=== PATIENT | male | born 1960 | race Caucasian/White ===

== ENCOUNTER → 2021-06-07 | Day surgery (SDC) | payer BC ==
[~2021-06-07] MED LIST: AMLODIPINE BESY10 MG PO; BUPROPION XL300 MG PO; EFFEXOR XR150 MG PO; LOSARTAN-HCTZ1 EACH PO; NORCO5 PO; PRILOSEC OTC20 MG PO
--- NOTE | ~2021-06-07 | OP ---
[facility] [address] [place] [address] OPERATIVE REPORT Name: MIGUEL ZIMMERMAN Room: [facility]..#: [id number] Admission: 06/07/21 Attend Phys: Byron Velez Discharge: Date of : 62 Report #: [id number] THIS REPORT FOR: cc: Kamilla Madden MD, Kelly A. MD Patterson,Byron Calvert MD ~ DATE OF SURGERY: 06/07/2021 PREOPERATIVE DIAGNOSIS: Left inguinal hernia. POSTOPERATIVE DIAGNOSIS: Left inguinal hernia. OPERATION: Laparoscopic repair of left inguinal hernia with mesh. SURGEON: Byron Velez MD ANESTHESIA: General. ESTIMATED BLOOD LOSS: Minimal. SPECIMENS: None. DESCRIPTION OF PROCEDURE: After informed consent was obtained, the patient was brought to the operating room and placed supine. SCDs were placed and working, preoperative antibiotics were administered, general anesthesia was induced. The abdomen was prepped and draped in the usual sterile fashion. The patient had voided prior to coming back to the OR. A 10 mm incision was made above the umbilicus. Fascia was incised and a trocar was placed. Pneumoperitoneum was established. Left and right-sided 5 mm trocars were placed. The peritoneum at the left ASIS was scored. The peritoneum was then incised medially and reflected inferiorly. This allowed visualization of the cord structures as well as the epigastric vessels and the iliac vessels. I identified the pubic bone. He had an indirect hernia. This was all carefully reduced. Cord structures were protected at all times. A Bard 3DMax medium left-sided mesh was inserted. It was placed into the preperitoneal pocket that was made. I then reapproximated the peritoneum over the mesh incorporating bites of the mesh into the repair to keep the mesh in place. The mesh was 100% covered. The area was then instilled with 10 mL of 0.5% Marcaine solution. The ports were removed under direct vision. The fascia at the midline was closed with a etsihk-rx-soraj 0 Vicryl. Skin was closed with 4-0 Monocryl. Incisions were [place] [address] OPERATIVE REPORT Name: MIGUEL ZIMMERMAN Room: [facility]#: [id number] Admission: 06/07/21 Attend Phys: Byron Velez Discharge: Date of : 62 Report #: [id number] COMPLICATIONS: None. DISPOSITION: The patient was taken to recovery in satisfactory condition. By: [id number] Velez MD /nt
[2021-06-07 06:35] LABS: HEMATOCRIT 39.7 % (42.0-52.0); HEMOGLOBIN 13.8 gm/dL (14.0-18.0); MCHC 34.7 g/dL (28.0-37.0); MCV 86.5 fL (80.0-100.0); MPV 7.6 fl. (7.2-11.1); RBC 4.59 mil/uL (4.50-6.00); RDW-CV 13.4 % (10.5-14.5); WBC 8.3 thou/uL (4.0-11.0)
[2021-06-07 06:40] LABS: CALCIUM 8.7 mg/dL (8.5-10.1); CREATININE 1.2 mg/dL (0.6-1.3); POTASSIUM 3.6 mmol/L (3.5-5.1)
--- NOTE | 2021-06-08 11:13 | EKG ---
[place] [address] ELECTROCARDIOGRAM REPORT Name: MIGUEL ZIMMERMAN Room: [facility]#: [id number] Admission: 06/07/21 Attend Phys: Byron Alvarez Discharge: Date of : 62 Date of Service: 06/07/21718 Report #: [id number] THIS REPORT FOR: //name// [facility] Test Date: 2021-06-07 Test Time: 07:19:15 Pat Name: MIGUEL ZIMMERMAN Department: Room: Gender: [employer] Curator: : 1960 Requested By: Tomasz Pereira Order Number: [id number] Amos MD: Derrek Vora Measurements Intervals [place] Rate: 68 P: 38 IN: 152 QRS: 55 QRSD: 100 T: 40 QT: 401 QTc: 427 Interpretive Statements Sinus rhythm Abnormal R-wave progression, early transition No previous ECG available for comparison Electronically Signed On 06-08-2021 11:13:37 [employer] by Derrek Vora [email or web address] <ELECTRONICALLY SIGNED> By: Derrek Vora MD, [facility] 06/08/21 1113 8 8 Derrek Vora MD, [facility] /EPI
== END | disposition home or self-care (01) ==
LOC: M.SUR 06:00
PROVIDERS: Anesthesiology; ATTEND Surgery
DX: K40.90 Unilateral inguinal hernia, without obstruction or gangrene, not specified as recurrent (principal); R10.9 Unspecified abdominal pain; Z98.890 Other specified postprocedural states; Z79.899 Other long term (current) drug therapy; Z20.822 Contact with and (suspected) exposure to COVID-19; Z88.8 Allergy status to other drugs, medicaments and biological substances